=== PATIENT | male | born 1965 | race Caucasian/White ===

== ENCOUNTER 2016-12-16 15:56 | Emergency (ER) | payer MEDICAID ==
[~2016-12-16] VITALS: Ht 170.2 cm; Wt 93.0 kg
[2016-12-16 15:59] VITALS: Ht 170.2 cm; Wt 93.0 kg
[2016-12-16] MEDS ORDERED: KETOROLAC 60 MG INJ IM STA (16:57)
[2016-12-16] MEDS ORDERED: TRAM50TA2 PO (17:01)
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
== END 2016-12-16 17:14 | disposition home or self-care (01) ==
LOC: FTE 15:56
DX: M54.5 Low back pain (principal); I10 Essential (primary) hypertension; E11.9 Type 2 diabetes mellitus without complications
CPT/HCPCS: 96372; J1885; Z7502